=== PATIENT | female | born 1970 | race Caucasian/White ===

== ENCOUNTER 2019-03-06 11:37 | Emergency (ER) | payer MEDICAID ==
[2019-03-06 11:41] VITALS: BP 132/90
--- NOTE | 2019-03-06 11:49 | ER Report ---
History and Physical Time Seen By MD: 11:48 Hx. of Stated Complaint: allergies, has been around a lot of dogs. took benadryl did not help. has headache HPI/ROS CHIEF COMPLAINT: Sinus congestion, concern for sinusitis HISTORY OF PRESENT ILLNESS: 48-year-old female patient presents to the emergency room with complaint of sinus congestion, headache. Patient states the symptoms have been going on since yesterday. Patient states she does have a history of allergies to pets. She states that she is currently up in [place] visiting her son. She is staying at a friend's home. She states the friend does have 3 dogs. She states that over the last study couple of days she's been having significant amounts of sinus congestion headache. Patient states that the headache seems her last night. She also notes that she had more of a yellowish drainage from her sinuses at that time. She denies having any fevers, chills, nausea, vomiting or diarrhea. Patient states she has had a slight sore throat. She denies any cough. Patient states that she has taken some Benadryl with no improvement. She states that historically when she is taken Benadryl not had any improvement it has been something infectious. Allergies: Coded Allergies: Penicillins (Verified Allergy, Intermediate, hives , 03/06/19) ceftriaxone (Verified Allergy, Intermediate, hives , 03/06/19) propoxyphene (Verified Allergy, Intermediate, tachycardia, syncope , 03/06/19) tetracycline (Verified Allergy, Intermediate, hives , 03/06/19) erythromycin base (Verified Allergy, Unknown, hives , 03/06/19) Home Meds Active Scripts Fluticasone Prop 50 Mcg Ns (FLONASE 50 MCG NS) 16 Gm Jackson.susp, 1 SPRAY NS BID, #1 BOT Prov:ABHISHEK PERSAUD [employer] 03/06/19 Reported Medications Prednisone (PREDNISONE) 20 Mg Tablet, PO DAILY, TAB 03/06/19 [b12 shot] No Conflict Check, IM every other week 03/06/19 Oxycodone Hcl (OXYCONTIN) 10 Mg Tab.er.12h, 10 MG PO Q8H, TAB 03/06/19 Omeprazole (OMEPRAZOLE) 40 Mg Capsule.dr, 40 MG PO QDAY, CAP 03/06/19 Ranitidine Hcl (ZANTAC) 150 Mg Tablet, 150 MG PO DAILY, TAB 03/06/19 Lipase/Protease/Amylase (PRICE PERSAUD 12,000 UNITS CAPSULE) 1 Each Capsule., 6 EACH PO TID 03/06/19 Past Medical/Surgical History Patient has a past medical history of asthma, chronic pancreatitis. Patient has surgical history of J-tube placement, cholecystectomy. Reviewed Nurses Notes: Yes Constitutional Vital Sign - Last 24 Hours 03/06/19 03/06/19 11:41 12:13 Temp 98.7 Pulse 90 Resp 18 B/P (MAP) 132/90 Pulse Ox 89 92 O2 Delivery Room Air Room Air Physical Exam General Appearance: The patient is alert, has no immediate need for airway protection and no current signs of toxicity. ENT: Tympanic membranes are pearly-schwarz, auditory canals are patent, mucous membranes are moist. Patient does have pale-looking mucous membranes in the sinus passages area Respiratory: Chest is non tender, lungs are clear to auscultation. Cardiac: regular rate and rhythm Gastrointestinal: Abdomen is soft and non tender, no masses, bowel sounds normal. Musculoskeletal: Neck: Neck is supple and non tender. Extremities have full range of motion and are non tender. Skin: No rashes or lesions. DIFFERENTIAL DIAGNOSIS: After history and physical exam differential diagnosis was considered for allergic rhinitis, sinusitis, viral upper respiratory infection. Medical Decision Making ED Course/Re-evaluation ED Course Patient was admitted to exam room, history and physical were obtained. Differential diagnoses were considered. On examination lungs are clear, heart is regular, abdomen is soft and nontender. Mucous membranes in the sinus passages appear to be pale. Patient had no cervical lymphadenopathy. I discussed my findings with patient. I believe this is likely a allergic rhinitis. We will go ahead and have her flush out her sinus passages, using a sinus rinse. We'll then also have her use Flonase edition her medication. I encouraged her to find another place to stay as the daughter likely the cause of this. I discussed the patient verbalized understanding and agreement with plan. Decision to Disposition Date: March 06, 2019 Decision to Disposition Time: 12:05 Depart Departure Latest Vital Signs Vital Signs Date Time Temp Pulse Resp B/P (MAP) Pulse Ox O2 Delivery O2 Flow Rate FiO2 03/06/19 12:13 92 Room Air 03/06/19 11:41 98.7 90 18 132/90 Impression: Primary Impression: Allergic rhinitis due to animals Condition: Condition Unchanged Disposition: HOME OR SELF-CARE New Scripts Fluticasone Prop 50 Mcg Ns (FLONASE 50 MCG NS) 16 Gm Jackson.susp 1 SPRAY NS BID, #1 BOT Prov: ABHISHEK PERSAUD 03/06/19 Patient Instructions: Allergic Rhinitis (ED) Additional Instructions: Increase fluid intake. Get plenty of rest. Make sure that you wash your hands prior to touching your face. Try sinus rinses, those can be purchased over the counter I would recommend NeilMed as a brand. Try using the sinus rinse prior to the Flonase. A prescription was written for Flonase. It may be the most beneficial for you to stay at another house. ABHISHEK PERSAUD March 06, 2019 11:49
[2019-03-06] MEDS ORDERED: b12 shot IM (11:52)
[2019-03-06] MEDS ORDERED: LIPA1CAP61 PO (11:52)
[2019-03-06] MEDS ORDERED: OMEP40CA48 PO (11:52)
[2019-03-06] MEDS ORDERED: PRED20TA6 PO (11:52)
[2019-03-06] MEDS ORDERED: OXYC-823 PO (11:52)
[2019-03-06] MEDS ORDERED: RANI-366 PO (11:52)
[2019-03-06] MEDS ORDERED: FLUT16SP19 NS (12:06)
== END 2019-03-06 12:13 | disposition home or self-care (01) ==
LOC: ER 11:54
DX: J30.81 Allergic rhinitis due to animal (cat) (dog) hair and dander (principal)
CPT/HCPCS: 99282